=== PATIENT | male | born 1965 | race American Indian/Alaskan Native ===

== ENCOUNTER 2019-11-17 00:18 | Day surgery (SDC) | payer OTHER ==
[~2019-11-17 00:18] MED LIST: ATOR10; LISI5 PO; METF500; SPIHYD
== END 2019-11-17 22:52 | disposition home or self-care (01) ==
LOC: WOUND 00:18
DX: E11.621 Type 2 diabetes mellitus with foot ulcer (principal); E11.42 Type 2 diabetes mellitus with diabetic polyneuropathy; I10 Essential (primary) hypertension; F41.9 Anxiety disorder, unspecified; E11.51 Type 2 diabetes mellitus with diabetic peripheral angiopathy without gangrene; L97.519 Non-pressure chronic ulcer of other part of right foot with unspecified severity; Z79.84 Long term (current) use of oral hypoglycemic drugs; Z79.899 Other long term (current) drug therapy
CPT/HCPCS: G0463

== ENCOUNTER 2019-11-18 17:45 | Inpatient (IN) | payer SELFPAY ==
[~2019-11-18] VITALS: Ht 172.7 cm; Wt 80.2 kg
[2019-11-18 18:36] LABS: BASOPHILS ABSOLUTE AUTO 0.09 K/mm3 (0.00-0.23); BASOPHILS PERCENT AUTO 1 % (0-2); EOSINOPHILS ABSOLUTE AUTO 0.25 K/mm3 (0.00-0.68); EOSINOPHILS PERCENT AUTO 2 % (0-6); Hematocrit 41.6 % (37.0-53.0); Hemoglobin 14.2 g/dL (13.5-17.5); IMMATURE GRAN ABSOLUTE AUTO 0.06 K/mm3 (0.00-0.10); IMMATURE GRAN PERCENT AUTO 1 % (0-1); LYMPHOCYTES ABSOLUTE AUTO 2.54 K/mm3 (0.84-5.20); LYMPHOCYTES PERCENT AUTO 23 % (21-46); MONOCYTES ABSOLUTE AUTO 1.39 K/mm3 (0.16-1.47); MONOCYTES PERCENT AUTO 12 % (4-13); Mean Corpuscular HGB Conc 34.1 g/dL (31.5-36.5); Mean Corpuscular Volume 88 fL (80-100); NEUTROPHILS ABSOLUTE AUTO 6.98 K/mm3 (1.96-9.15); NEUTROPHILS PERCENT AUTO 62 % (41-73); Platelet Count 509 K/mm3 (150-400); RDW Coefficient Variation 11.9 % (11.7-14.2); RDW Standard Deviation 38.4 fL (35.1-46.3); Red Blood Cell Count 4.74 M/mm3 (4.30-5.90); White Blood Cell Count 11.31 K/mm3 (4.00-11.30)
[2019-11-18 19:03] LABS: Albumin, Blood 2.9 g/dL (3.4-5.0); Albumin/Globulin Ratio 0.4 (0.8-1.8); Bilirubin, Total 0.7 mg/dL (0.1-1.0); Bun/Creatinine Ratio 14.2 (12.0-20.0); Calcium, Blood 9.1 mg/dL (8.5-10.1); Creatinine, Blood 1.48 mg/dL (0.60-1.20); Globulin, Blood 6.8 g/dL (2.2-4.0); Potassium, Blood 3.5 mmol/L (3.5-5.5); Total Protein, Blood 9.7 g/dL (6.4-8.2)
[2019-11-18 21:19] LABS: Source, Urine Clean Catch
[2019-11-18 21:26] LABS: Appearance, Urine Clear (Clear); Bilirubin, Urine Neg (Neg); Blood, Urine Neg (Neg); Color, Urine Amber (P-Yellow); Glucose Qualitative, Urine Neg (Neg); Ketones, Urine 1+ (Neg); Leukocyte Esterase, Urine 1+ (Neg); Nitrite, Urine Neg (Neg); Protein, Urine Neg (Neg); Specific Gravity, Urine 1.015 (1.003-1.022); Urobilinogen, Urine 1+ (Normal)
[2019-11-18 21:32] LABS: Bacteria Mod /hpf; Hyaline Casts 0-2 /lpf (0-2); Red Blood Cells, Urine 0-2 /hpf (0-2); Squamous Epithelial Cells Not Seen /hpf (Few); White Blood Cells, Urine 0-2 /hpf (0-5)
--- NOTE | 2019-11-19 04:11 | NUR ---
PT ARRIVED TO UNIT AT 2122 VIA WHEELCHAIR. A/O X4. INTRODUCED TO STAFF AND ROOM. DENIES CHEST PAIN, SOB, NAUSEA. PICTURES TAKEN OF TOE GANGRENE ON BILATERAL TOE. VSS. PT BEEN NPO SINCE MIDNIGHT FOR POSSIBLE PROCEDURE. COOPERATIVE AND PLEASANT. INDEPENDENT IN ROOM. CALL LIGHT WITHIN REACH.
[2019-11-19 04:41] LABS: BASOPHILS ABSOLUTE AUTO 0.08 K/mm3 (0.00-0.23); BASOPHILS PERCENT AUTO 1 % (0-2); EOSINOPHILS ABSOLUTE AUTO 0.22 K/mm3 (0.00-0.68); EOSINOPHILS PERCENT AUTO 3 % (0-6); Hematocrit 38.5 % (37.0-53.0); IMMATURE GRAN ABSOLUTE AUTO 0.04 K/mm3 (0.00-0.10); IMMATURE GRAN PERCENT AUTO 1 % (0-1); LYMPHOCYTES ABSOLUTE AUTO 2.23 K/mm3 (0.84-5.20); LYMPHOCYTES PERCENT AUTO 26 % (21-46); MONOCYTES ABSOLUTE AUTO 1.12 K/mm3 (0.16-1.47); MONOCYTES PERCENT AUTO 13 % (4-13); Mean Corpuscular HGB 30.1 pg (26.0-34.0); Mean Corpuscular HGB Conc 33.8 g/dL (31.5-36.5); Mean Corpuscular Volume 89 fL (80-100); Mean Platelet Volume 9.8 fL (9.1-12.4); NEUTROPHILS ABSOLUTE AUTO 4.86 K/mm3 (1.96-9.15); NEUTROPHILS PERCENT AUTO 57 % (41-73); Platelet Count 447 K/mm3 (150-400); RDW Standard Deviation 39.5 fL (35.1-46.3); Red Blood Cell Count 4.32 M/mm3 (4.30-5.90); White Blood Cell Count 8.55 K/mm3 (4.00-11.30)
[2019-11-19 04:57] LABS: Anion Gap 4 mmol/L (6-16); Blood Urea Nitrogen 19 mg/dL (8-24); Bun/Creatinine Ratio 15.6 (12.0-20.0); CO2, Blood 30 mmol/L (21-32); Calcium, Blood 8.7 mg/dL (8.5-10.1); Chloride, Blood 97 mmol/L (98-108); Creatinine, Blood 1.22 mg/dL (0.60-1.20); Glomerular Filtration Rate >60 (60-); Glucose, Blood 163 mg/dL (70-99); Potassium, Blood 4.3 mmol/L (3.5-5.5); Sodium, Blood 131 mmol/L (136-145)
--- NOTE | 2019-11-19 11:07 | NUR ---
"DAY SURGERY RN | MEDICATION ADMIN THIS RN GAVE VERSED PER ORDER. COMPUTER WOULDN'T SCAN. VERIFIED MEDICATION, DOSAGE, TIME, AND PATIENT WITH EMPERATRIZ MODI."
--- NOTE | 2019-11-19 11:09 | NUR ---
Patient up to Ambulate independently. Gait steady. History, Chart, Medications and Allergies reviewed before start of procedure.Lungs clear T/O to Auscultation. Patient confirms NPO status and agrees with scheduled surgery. REPORT FROM EDG[facility] MODI ROOM 305 NURSE. PT ALERT AND ORIENTED X3. PROVIDED EMOTIONAL SUPPORT.
--- NOTE | 2019-11-19 11:56 | NUR ---
11/19/19 1156 Rose Antonio ALL COUNTS CORRECT.
--- NOTE | 2019-11-19 12:30 | NUR ---
AWAKE AND ALERT, COMPAINTS OF HUNGER. RETURNED TO ROOM 305
--- NOTE | 2019-11-19 14:07 | NUR ---
PATIENT RETURNED TO ROOM 305 FROM DOUBLE TOE AMPUTATION. INSENTIVE SPIROMETER PROVIDED TO THE PATIENT AND EXPLAINED HOW TO USE. PATIENT DID RETURN DEMONSTRATION. POST-OP SHOES ALSO CALLED DOWN TO [facility] AND SENT UP TO PATIENT; THEY ARE IN PATIENTS ROOM.
--- NOTE | 2019-11-19 15:45 | NUR ---
PATIENT IS S/P AMPUTATION OF 3RD TOE TO LEFT FOOT AND 2ND TOE TO RIGHT FOOT. HE IS DOING WELL THUS FAR AND DENIES PAIN AND DISCOMFORT. HE HAS ALREADY BEEN UP ONCE TO THE BATHROOM AND USED HIS POST-OP SHOES INSTRUCTED. VITALS ARE STABLE. THE PATIENT IS PLEASANT AND COOPERATIVE WITH STAFF AND CALLS FOR STAFF ASSIST APPROPRIATELY. WILL CONTINUE TO MONITOR AND PROVIDE CARE NEEDED.
--- NOTE | 2019-11-20 05:43 | NUR ---
ENVIRONMENTAL EDUCATION SPECIALIST SUMMARY PT A/O X4. PT HAS BEEN UP WITH WALKER AND POST OP SHOES WITH NON-TOE BEARING WEIGHT TO BATHROOM. PT STATES PAIN TOLERABLE, DENIES SOB AND DIZZINESS. PT SLEPT WELL TONIGHT. DRESSING ON BILATERAL FEET C/D/I. VSS. NO ACUTE CHANGES.
[2019-11-20] MEDS ORDERED: Florastor250 MG PO (07:58)
[2019-11-20] MEDS ORDERED: METF500 PO (07:58)
[2019-11-20] MEDS ORDERED: METR500 PO (07:59)
[2019-11-20] MEDS ORDERED: Augmentin 875-1 EACH PO (07:59)
--- NOTE | 2019-11-20 11:28 | NUR ---
PATIENT DISCHARGE: PATIENT DISCHARGED TO HOME THIS SHIFT. MEDICATION RECONCILIATION COMPLETED; MED LIST FAXED TO [facility]. DISCHARGE EDUCATION COMPLETED WITH PATIENT. PATIENT [facility]SPORTED TO [facility] STAFF WITH WHEELCHAIR AT 1120. PATIENT DEPARTED [facility] VIA PRIVATE AUTO.
== END 2019-11-20 11:22 | disposition home or self-care (01) | DRG 256 ==
LOC: ER 17:45 → MEDS 21:07 → ENPENDDIS 11-20 08:00 → MEDS 11-20 11:22
PROVIDERS: Physician Assistant; Podiatrist Foot & Ankle Surgery; ADMIT Hospitalist
PROC: 0Y6U0Z2 Detachment at Left 3rd Toe, Mid, Open Approach (ICD-10-PCS; 2019-11-19)
PROC: 0Y6R0Z2 Detachment at Right 2nd Toe, Mid, Open Approach (ICD-10-PCS; principal; 2019-11-19 11:00)
DX: E11.52 Type 2 diabetes mellitus with diabetic peripheral angiopathy with gangrene (principal); M86.9 Osteomyelitis, unspecified; I96 Gangrene, not elsewhere classified; E87.1 Hypo-osmolality and hyponatremia; N17.9 Acute kidney failure, unspecified; E11.69 Type 2 diabetes mellitus with other specified complication; N18.3 Chronic kidney disease, stage 3 (moderate); E11.22 Type 2 diabetes mellitus with diabetic chronic kidney disease; I12.9 Hypertensive chronic kidney disease with stage 1 through stage 4 chronic kidney disease, or unspecified chronic kidney disease
CPT/HCPCS: 36415; 71046; 80048; 80053; 81001; 82947; 85025; 87086; 90686; 93005; 93010; 96365; 96367; 96375; 99285-25; A9270-GY; J0696; J2250; J2543; J2704; J3010; J7030; J7050

== ENCOUNTER 2020-01-07 00:12 | Day surgery (SDC) | payer OTHER ==
[~2020-01-07 00:12] MED LIST changes: +Augmentin 875-1 EACH PO; +Florastor250 MG PO; +METF500 PO; +METR500 PO
== END 2020-01-07 22:44 | disposition home or self-care (01) ==
LOC: WOUND 00:12
DX: E11.621 Type 2 diabetes mellitus with foot ulcer (principal); E11.51 Type 2 diabetes mellitus with diabetic peripheral angiopathy without gangrene; L97.512 Non-pressure chronic ulcer of other part of right foot with fat layer exposed; L97.522 Non-pressure chronic ulcer of other part of left foot with fat layer exposed; E11.59 Type 2 diabetes mellitus with other circulatory complications; E11.42 Type 2 diabetes mellitus with diabetic polyneuropathy; I10 Essential (primary) hypertension; F41.9 Anxiety disorder, unspecified; Z79.899 Other long term (current) drug therapy; Z79.84 Long term (current) use of oral hypoglycemic drugs
CPT/HCPCS: G0463

== ENCOUNTER 2020-01-13 00:11 | Day surgery (SDC) | payer OTHER | END 2020-01-13 22:44 | disposition home or self-care (01) | LOC: WOUND 00:11 | DX: E11.621 Type 2 diabetes mellitus with foot ulcer (principal); L97.512 Non-pressure chronic ulcer of other part of right foot with fat layer exposed; E11.59 Type 2 diabetes mellitus with other circulatory complications; E11.42 Type 2 diabetes mellitus with diabetic polyneuropathy; I10 Essential (primary) hypertension; F41.9 Anxiety disorder, unspecified; Z79.899 Other long term (current) drug therapy; Z79.84 Long term (current) use of oral hypoglycemic drugs ==

== ENCOUNTER 2020-01-20 00:20 | Day surgery (SDC) | payer SELFPAY | END 2020-01-20 22:46 | disposition home or self-care (01) | LOC: WOUND 00:20 | DX: E11.621 Type 2 diabetes mellitus with foot ulcer (principal); L97.512 Non-pressure chronic ulcer of other part of right foot with fat layer exposed; E11.59 Type 2 diabetes mellitus with other circulatory complications; E11.42 Type 2 diabetes mellitus with diabetic polyneuropathy; I10 Essential (primary) hypertension; F41.9 Anxiety disorder, unspecified; Z79.84 Long term (current) use of oral hypoglycemic drugs; Z79.899 Other long term (current) drug therapy | CPT/HCPCS: G0463 ==

== ENCOUNTER 2020-02-10 00:22 | Day surgery (SDC) | payer OTHER | END 2020-02-10 22:58 | disposition home or self-care (01) | LOC: WOUND 00:22 | DX: E11.621 Type 2 diabetes mellitus with foot ulcer (principal); L97.512 Non-pressure chronic ulcer of other part of right foot with fat layer exposed; E11.59 Type 2 diabetes mellitus with other circulatory complications; I10 Essential (primary) hypertension; F41.9 Anxiety disorder, unspecified; E11.42 Type 2 diabetes mellitus with diabetic polyneuropathy | CPT/HCPCS: G0463 ==

== ENCOUNTER 2020-06-06 11:48 | Day surgery (SDC) | payer OTHER ==
[~2020-06-06] VITALS: Ht 172.7 cm; Wt 80.3 kg
[~2020-06-06 11:48] MED LIST changes: +ATOR10 PO; +Aspirin EC81 MG PO; +GLIP2.5ER PO; +GLUCOPHAGE1000 MG PO; +LISI20 PO; +MULTIPLE VITAM1 EACH PO
== END 2020-06-06 14:13 | disposition home or self-care (01) ==
LOC: ORSCSDS 11:48
PROVIDERS: Internal Medicine Gastroenterology
PROC: 0DBC8ZX Excision of Ileocecal Valve, Via Natural or Artificial Opening Endoscopic, Diagnostic (ICD-10-PCS; principal; 2020-06-06 13:15)
PROC: 0DBK8ZX Excision of Ascending Colon, Via Natural or Artificial Opening Endoscopic, Diagnostic (ICD-10-PCS; principal; 2020-06-06 13:15)
DX: Z12.11 Encounter for screening for malignant neoplasm of colon (principal); Z80.0 Family history of malignant neoplasm of digestive organs; D12.2 Benign neoplasm of ascending colon; D12.0 Benign neoplasm of cecum; K57.30 Diverticulosis of large intestine without perforation or abscess without bleeding; I10 Essential (primary) hypertension; E11.9 Type 2 diabetes mellitus without complications; E78.5 Hyperlipidemia, unspecified; Z79.84 Long term (current) use of oral hypoglycemic drugs; Z79.82 Long term (current) use of aspirin; Z79.899 Other long term (current) drug therapy
CPT/HCPCS: 82947; 88305; J2704; J7120

== ENCOUNTER 2020-12-15 17:16 | Emergency (ER) | payer OTHER ==
[~2020-12-15] VITALS: Ht 172.7 cm; Wt 86.2 kg
[2020-12-15 17:57] LABS: BASOPHILS ABSOLUTE AUTO 0.06 K/mm3 (0.00-0.23); BASOPHILS PERCENT AUTO 1 % (0-2); EOSINOPHILS ABSOLUTE AUTO 0.24 K/mm3 (0.00-0.68); EOSINOPHILS PERCENT AUTO 3 % (0-6); Hematocrit 37.4 % (37.0-53.0); Hemoglobin 12.4 g/dL (13.5-17.5); IMMATURE GRAN ABSOLUTE AUTO 0.09 K/mm3 (0.00-0.10); IMMATURE GRAN PERCENT AUTO 1 % (0-1); LYMPHOCYTES ABSOLUTE AUTO 1.93 K/mm3 (0.84-5.20); LYMPHOCYTES PERCENT AUTO 25 % (21-46); MONOCYTES ABSOLUTE AUTO 0.88 K/mm3 (0.16-1.47); MONOCYTES PERCENT AUTO 12 % (4-13); Mean Corpuscular HGB 29.4 pg (26.0-34.0); Mean Corpuscular HGB Conc 33.2 g/dL (31.5-36.5); Mean Corpuscular Volume 89 fL (80-100); Mean Platelet Volume 9.5 fL (9.1-12.4); NEUTROPHILS ABSOLUTE AUTO 4.42 K/mm3 (1.96-9.15); NEUTROPHILS PERCENT AUTO 58 % (41-73); Platelet Count 498 K/mm3 (150-400); RDW Coefficient Variation 12.7 % (11.7-14.2); RDW Standard Deviation 41.8 fL (35.1-46.3); Red Blood Cell Count 4.22 M/mm3 (4.30-5.90); White Blood Cell Count 7.62 K/mm3 (4.00-11.30)
[2020-12-15 18:25] LABS: Alanine Aminotransfer (ALT/SGP 22 U/L (12-78); Albumin, Blood 2.7 g/dL (3.4-5.0); Albumin/Globulin Ratio 0.5 (0.8-1.8); Alk Phos 86 U/L (50-136); Anion Gap 5 mmol/L (6-16); Aspartate Aminotrans (AST/SGOT 18 U/L (12-37); Bilirubin, Total 0.4 mg/dL (0.1-1.0); Blood Urea Nitrogen 8 mg/dL (8-24); CO2, Blood 27 mmol/L (21-32); Calcium, Blood 9.1 mg/dL (8.5-10.1); Chloride, Blood 102 mmol/L (98-108); Creatinine, Blood 0.73 mg/dL (0.60-1.20); Globulin, Blood 5.5 g/dL (2.2-4.0); Glomerular Filtration Rate >60 (60-); Glucose, Blood 216 mg/dL (70-99); Potassium, Blood 4.2 mmol/L (3.5-5.5); Sodium, Blood 134 mmol/L (136-145); Total Protein, Blood 8.2 g/dL (6.4-8.2)
[2020-12-16] MEDS ORDERED: METF500 PO (08:09)
== END 2020-12-15 23:09 | disposition home or self-care (01) ==
LOC: ER 17:16
PROVIDERS: Physician Assistant
DX: M86.9 Osteomyelitis, unspecified (principal); Z79.82 Long term (current) use of aspirin; Z79.899 Other long term (current) drug therapy
CPT/HCPCS: 36415; 80053; 85025; 93005; 93010; 99284-25

== ENCOUNTER 2020-12-16 06:24 | Inpatient (IN) | payer OTHER ==
[~2020-12-16] VITALS: Ht 172.7 cm; Wt 87.4 kg
[2020-12-16 07:49] LABS: Influenza A, PCR NEGATIVE (NEGATIVE); Influenza B, PCR NEGATIVE (NEGATIVE); Resp Syncytial Virus, PCR NEGATIVE (NEGATIVE); SARS-Cov-2 (COVID-19) PCR, MMC NEGATIVE (NEGATIVE)
[2020-12-16] MEDS ORDERED: METF500 PO (08:09)
[2020-12-16 12:08] LABS: BASOPHILS ABSOLUTE AUTO 0.06 K/mm3 (0.00-0.23); BASOPHILS PERCENT AUTO 1 % (0-2); EOSINOPHILS ABSOLUTE AUTO 0.22 K/mm3 (0.00-0.68); EOSINOPHILS PERCENT AUTO 3 % (0-6); Hematocrit 35.5 % (37.0-53.0); Hemoglobin 11.7 g/dL (13.5-17.5); IMMATURE GRAN ABSOLUTE AUTO 0.04 K/mm3 (0.00-0.10); IMMATURE GRAN PERCENT AUTO 1 % (0-1); LYMPHOCYTES ABSOLUTE AUTO 1.85 K/mm3 (0.84-5.20); LYMPHOCYTES PERCENT AUTO 27 % (21-46); MONOCYTES ABSOLUTE AUTO 0.67 K/mm3 (0.16-1.47); MONOCYTES PERCENT AUTO 10 % (4-13); Mean Corpuscular HGB 29.8 pg (26.0-34.0); Mean Corpuscular Volume 90 fL (80-100); Mean Platelet Volume 9.6 fL (9.1-12.4); NEUTROPHILS ABSOLUTE AUTO 4.03 K/mm3 (1.96-9.15); NEUTROPHILS PERCENT AUTO 59 % (41-73); Platelet Count 499 K/mm3 (150-400); RDW Coefficient Variation 12.7 % (11.7-14.2); RDW Standard Deviation 42.5 fL (35.1-46.3); Red Blood Cell Count 3.93 M/mm3 (4.30-5.90); White Blood Cell Count 6.87 K/mm3 (4.00-11.30)
[2020-12-16 12:13] LABS: Anion Gap 4 mmol/L (6-16); Blood Urea Nitrogen 7 mg/dL (8-24); Bun/Creatinine Ratio 9.6 (12.0-20.0); CO2, Blood 30 mmol/L (21-32); Calcium, Blood 8.8 mg/dL (8.5-10.1); Chloride, Blood 102 mmol/L (98-108); Creatinine, Blood 0.73 mg/dL (0.60-1.20); Glomerular Filtration Rate >60 (60-); Glucose, Blood 167 mg/dL (70-99); Potassium, Blood 4.3 mmol/L (3.5-5.5); Sodium, Blood 136 mmol/L (136-145)
--- NOTE | 2020-12-16 13:50 | NUR ---
CARE COORDINATION REFERRAL - ADMIT: 12/16/20 DISCHARGE: 12/16/20 DX: LEFT METATORSAL OSTEOMYLITIS CC: [facility] ALEX CALL: PT (APPT. WITH DR. CASTELLANOS, 12/19/20 @ 11) RESIDENCE: HOMELESS CAREGIVER: SELF DX: HTN, DM, HYPERLIPIDEMIA, SEE LIST DME: [facility] SUPPLIES CCM: NONE HOME HEALTH: NONE SUMMARY: ADMIT: 12/16/[address] CASTELLANOS, PT WAS GOING TO HAVE SURGERY TO AMPUTATE HIS BIG TOE ON HIS LEFT FOOT BUT ARE CONSULTATION AND DISCUSSION WITH PT, THEY WOULD LIKE TO TRY IV ANTIBIOTICS FOR INFECTION BEFORE REMOVING HIS TOE. PT IS AGREEABLE WITH THE PLAN. THERE IS CONCERN ABOUT HIM BEING HOMELESS. REACHED OUT TO FCO WITH [facility]. SHE IS OUT OF TOWN AND GAVE ME ANABELLE'S NUMBER. CALLED [facility] FOR ANY HOUSING RESOURCES. DR. CASTELLANOS CONSULTED DR. LEDESMA AND THE PLAN IS FOR PT TO FOLLOW UP WITH DR. CASTELLANOS ON SATURDAY. PER DIRECTOR OF CARE MANAGEMENT, PT WILL NEED TO GET IV ANTIBIOTICS THROUGH [facility].
--- NOTE | 2020-12-16 17:56 | NUR ---
DISCHARGE SUMMARY PT DIRECT ADMIT FOR A R GREAT TOE AMPUTATION PER DR. BURCH TODAY. DR. CASTELLANOS WITH [facility] ASSESSED THE PATIENT AND DETERMINED THAT PT MAY BENEFIT FROM OUT PATIENT ANTIBIOTIC TREATMENT RATHER THAN THERAPY. DECISION WAS DISCUSSED WITH PATIENT AND AND THE PATIENT DID NOT RECEIVE SURGERY TODAY. PT TO FOLLOW UP WITH DR. CASTELLANOS ON SATURDAY AT 11:00. IV DC'D WNL. DISCHARGED TO THE [facility].
== END 2020-12-16 17:55 | disposition home or self-care (01) | DRG 638 ==
LOC: ORSCMMR 06:24 → SURS 06:32 → ORSCMMR 06:32 → SURS 17:55
PROVIDERS: Anesthesiology; Internal Medicine; ADMIT Internal Medicine
DX: E11.69 Type 2 diabetes mellitus with other specified complication (principal); M86.172 Other acute osteomyelitis, left ankle and foot; L97.529 Non-pressure chronic ulcer of other part of left foot with unspecified severity; E11.621 Type 2 diabetes mellitus with foot ulcer; E11.65 Type 2 diabetes mellitus with hyperglycemia; E78.5 Hyperlipidemia, unspecified; E11.51 Type 2 diabetes mellitus with diabetic peripheral angiopathy without gangrene; D64.9 Anemia, unspecified; I12.9 Hypertensive chronic kidney disease with stage 1 through stage 4 chronic kidney disease, or unspecified chronic kidney disease; N18.9 Chronic kidney disease, unspecified; Z20.822 Contact with and (suspected) exposure to COVID-19; E11.22 Type 2 diabetes mellitus with diabetic chronic kidney disease; J45.909 Unspecified asthma, uncomplicated; Z96.651 Presence of right artificial knee joint; Z98.890 Other specified postprocedural states; Z89.422 Acquired absence of other left toe(s); Z89.421 Acquired absence of other right toe(s); Z79.84 Long term (current) use of oral hypoglycemic drugs; Z71.3 Dietary counseling and surveillance; Z59.0 Homelessness; I25.2 Old myocardial infarction
CPT/HCPCS: 0241U; 36415; 80048; 82947; 85025; 85651; 86141; 86850; 86900; 86901; 87040; 87070; 87075; 87077; 87147; 87186; 87205; J7050

== ENCOUNTER 2020-12-20 01:02 | Day surgery (SDC) | payer OTHER ==
--- NOTE | 2020-12-20 08:15 | NUR ---
PB ELEVATED. CALLED PRIMARY CARE PROVIDERS OFFICE DR. CASTELLANOS AND SPOKE WITH LINK TOLLIVER AND REPORTED ELEVATED BP. SHE STATED SHE WOULD TALK WITH MD. NO NEW ORDERS GIVEN.
== END 2020-12-20 08:11 | disposition home or self-care (01) ==
LOC: ATC 01:02
DX: E11.69 Type 2 diabetes mellitus with other specified complication (principal); M86.9 Osteomyelitis, unspecified; E11.42 Type 2 diabetes mellitus with diabetic polyneuropathy; E11.51 Type 2 diabetes mellitus with diabetic peripheral angiopathy without gangrene; E78.5 Hyperlipidemia, unspecified; I10 Essential (primary) hypertension; M19.042 Primary osteoarthritis, left hand; M19.041 Primary osteoarthritis, right hand; Z96.651 Presence of right artificial knee joint; Z79.82 Long term (current) use of aspirin; Z79.84 Long term (current) use of oral hypoglycemic drugs
CPT/HCPCS: J0696

== ENCOUNTER 2020-12-21 00:29 | Day surgery (SDC) | payer OTHER | END 2020-12-21 08:45 | disposition home or self-care (01) | LOC: ATC 00:29 | DX: E11.69 Type 2 diabetes mellitus with other specified complication (principal); M86.9 Osteomyelitis, unspecified; E11.42 Type 2 diabetes mellitus with diabetic polyneuropathy; I10 Essential (primary) hypertension; E78.5 Hyperlipidemia, unspecified; Z96.651 Presence of right artificial knee joint; Z89.412 Acquired absence of left great toe; Z79.82 Long term (current) use of aspirin; Z79.84 Long term (current) use of oral hypoglycemic drugs | CPT/HCPCS: 96365; C1751; J0696 ==

== ENCOUNTER 2020-12-22 00:07 | Day surgery (SDC) | payer OTHER ==
[2020-12-23] MEDS ORDERED: CEFTRIAXONE2 G1 INJ (07:40)
== END 2020-12-22 08:25 | disposition home or self-care (01) ==
LOC: ATC 00:07
DX: E11.69 Type 2 diabetes mellitus with other specified complication (principal); M86.9 Osteomyelitis, unspecified; E11.42 Type 2 diabetes mellitus with diabetic polyneuropathy; E11.51 Type 2 diabetes mellitus with diabetic peripheral angiopathy without gangrene; I10 Essential (primary) hypertension; E78.5 Hyperlipidemia, unspecified; M19.042 Primary osteoarthritis, left hand; M19.041 Primary osteoarthritis, right hand; Z79.84 Long term (current) use of oral hypoglycemic drugs; Z96.651 Presence of right artificial knee joint; Z89.412 Acquired absence of left great toe; Z79.82 Long term (current) use of aspirin
CPT/HCPCS: 96365; J0696

== ENCOUNTER 2020-12-23 00:04 | Day surgery (SDC) | payer OTHER ==
[2020-12-23] MEDS ORDERED: CEFTRIAXONE2 G1 INJ (07:40)
== END 2020-12-23 08:00 | disposition home or self-care (01) ==
LOC: ATC 00:04
DX: E11.69 Type 2 diabetes mellitus with other specified complication (principal); M86.9 Osteomyelitis, unspecified; E11.51 Type 2 diabetes mellitus with diabetic peripheral angiopathy without gangrene; E11.42 Type 2 diabetes mellitus with diabetic polyneuropathy; I10 Essential (primary) hypertension; E78.5 Hyperlipidemia, unspecified; Z96.651 Presence of right artificial knee joint; Z89.429 Acquired absence of other toe(s), unspecified side; Z79.82 Long term (current) use of aspirin; Z79.84 Long term (current) use of oral hypoglycemic drugs
CPT/HCPCS: 96365; J0696

== ENCOUNTER 2020-12-24 07:50 | Day surgery (SDC) | payer OTHER ==
[~2020-12-24 07:50] MED LIST changes: +CEFTRIAXONE2 G1 INJ
== END 2020-12-24 08:23 | disposition home or self-care (01) ==
LOC: ATC 07:50
DX: E11.69 Type 2 diabetes mellitus with other specified complication (principal); M86.9 Osteomyelitis, unspecified; E11.42 Type 2 diabetes mellitus with diabetic polyneuropathy; E78.5 Hyperlipidemia, unspecified; I10 Essential (primary) hypertension; I73.9 Peripheral vascular disease, unspecified; Z89.429 Acquired absence of other toe(s), unspecified side; Z79.82 Long term (current) use of aspirin
CPT/HCPCS: J0696

== ENCOUNTER 2020-12-25 07:46 | Day surgery (SDC) | payer OTHER | END 2020-12-25 08:30 | disposition home or self-care (01) | LOC: ATC 07:46 | DX: E11.69 Type 2 diabetes mellitus with other specified complication (principal); M86.9 Osteomyelitis, unspecified; I10 Essential (primary) hypertension; E11.51 Type 2 diabetes mellitus with diabetic peripheral angiopathy without gangrene; E11.42 Type 2 diabetes mellitus with diabetic polyneuropathy; E78.00 Pure hypercholesterolemia, unspecified; E66.9 Obesity, unspecified; Z79.82 Long term (current) use of aspirin; Z79.84 Long term (current) use of oral hypoglycemic drugs; Z89.429 Acquired absence of other toe(s), unspecified side; Z96.651 Presence of right artificial knee joint | CPT/HCPCS: J0696 ==

== ENCOUNTER 2020-12-26 00:31 | Day surgery (SDC) | payer OTHER | END 2020-12-26 22:55 | disposition home or self-care (01) | LOC: WOUND | DX: E11.621 Type 2 diabetes mellitus with foot ulcer (principal); E11.69 Type 2 diabetes mellitus with other specified complication; E11.42 Type 2 diabetes mellitus with diabetic polyneuropathy; E11.59 Type 2 diabetes mellitus with other circulatory complications; L97.522 Non-pressure chronic ulcer of other part of left foot with fat layer exposed; M86.9 Osteomyelitis, unspecified; I10 Essential (primary) hypertension | CPT/HCPCS: A9270; G0463 ==

== ENCOUNTER 2020-12-27 00:25 | Day surgery (SDC) | payer OTHER ==
--- NOTE | 2020-12-27 08:40 | NUR ---
PT STATES HE HAS A DR. DAWNT IN THE NEXT COUPLE OF DAYS AND WILL ADDRESS HIS BP.
== END 2020-12-27 08:01 | disposition home or self-care (01) ==
LOC: ATC 00:25
DX: E11.69 Type 2 diabetes mellitus with other specified complication (principal); M86.9 Osteomyelitis, unspecified; E11.51 Type 2 diabetes mellitus with diabetic peripheral angiopathy without gangrene; E11.42 Type 2 diabetes mellitus with diabetic polyneuropathy; E78.5 Hyperlipidemia, unspecified; I10 Essential (primary) hypertension; E66.9 Obesity, unspecified; M19.042 Primary osteoarthritis, left hand; M19.041 Primary osteoarthritis, right hand; Z79.82 Long term (current) use of aspirin
CPT/HCPCS: 96365; J0696

== ENCOUNTER 2020-12-28 00:16 | Day surgery (SDC) | payer OTHER | END 2020-12-28 08:25 | disposition home or self-care (01) | LOC: ATC 00:16 | DX: E11.69 Type 2 diabetes mellitus with other specified complication (principal); M86.9 Osteomyelitis, unspecified; E11.42 Type 2 diabetes mellitus with diabetic polyneuropathy; E78.5 Hyperlipidemia, unspecified; I10 Essential (primary) hypertension; M19.042 Primary osteoarthritis, left hand; M19.041 Primary osteoarthritis, right hand; Z89.429 Acquired absence of other toe(s), unspecified side; Z96.651 Presence of right artificial knee joint; Z79.82 Long term (current) use of aspirin; Z79.84 Long term (current) use of oral hypoglycemic drugs | CPT/HCPCS: 96365; J0696 ==

== ENCOUNTER 2020-12-29 00:38 | Day surgery (SDC) | payer OTHER | END 2020-12-29 08:15 | disposition home or self-care (01) | LOC: ATC 00:38 | DX: E11.69 Type 2 diabetes mellitus with other specified complication (principal); M86.9 Osteomyelitis, unspecified; I10 Essential (primary) hypertension; E11.51 Type 2 diabetes mellitus with diabetic peripheral angiopathy without gangrene; E11.42 Type 2 diabetes mellitus with diabetic polyneuropathy; E78.00 Pure hypercholesterolemia, unspecified; E66.9 Obesity, unspecified; Z68.31 Body mass index [BMI] 31.0-31.9, adult; Z79.82 Long term (current) use of aspirin; Z79.84 Long term (current) use of oral hypoglycemic drugs; Z89.429 Acquired absence of other toe(s), unspecified side | CPT/HCPCS: 96365; J0696 ==

== ENCOUNTER 2020-12-30 00:15 | Day surgery (SDC) | payer OTHER | END 2020-12-30 08:10 | disposition home or self-care (01) | LOC: ATC 00:15 | DX: E11.69 Type 2 diabetes mellitus with other specified complication (principal); M86.9 Osteomyelitis, unspecified; I10 Essential (primary) hypertension; F10.20 Alcohol dependence, uncomplicated; E11.42 Type 2 diabetes mellitus with diabetic polyneuropathy; E11.51 Type 2 diabetes mellitus with diabetic peripheral angiopathy without gangrene; Z79.82 Long term (current) use of aspirin; E78.00 Pure hypercholesterolemia, unspecified; E66.9 Obesity, unspecified; Z89.429 Acquired absence of other toe(s), unspecified side | CPT/HCPCS: J0696 ==

== ENCOUNTER 2020-12-31 07:43 | Day surgery (SDC) | payer OTHER ==
[2021-01-01] MEDS ORDERED: BASAGLAR K100 UNIT/1 (09:33)
== END 2020-12-31 08:25 | disposition home or self-care (01) ==
LOC: ATC 07:43
DX: E11.69 Type 2 diabetes mellitus with other specified complication (principal); M86.9 Osteomyelitis, unspecified; E11.51 Type 2 diabetes mellitus with diabetic peripheral angiopathy without gangrene; E11.42 Type 2 diabetes mellitus with diabetic polyneuropathy; I10 Essential (primary) hypertension; E78.00 Pure hypercholesterolemia, unspecified; E66.9 Obesity, unspecified; Z68.31 Body mass index [BMI] 31.0-31.9, adult; Z79.82 Long term (current) use of aspirin; Z79.84 Long term (current) use of oral hypoglycemic drugs; Z89.429 Acquired absence of other toe(s), unspecified side
CPT/HCPCS: 96365; J0696

== ENCOUNTER 2021-01-01 09:23 | Day surgery (SDC) | payer OTHER ==
[2021-01-01] MEDS ORDERED: BASAGLAR K100 UNIT/1 (09:33)
[2021-01-02] MEDS ORDERED: Voltaren100 GM TOP (07:40)
[2021-01-02] MEDS ORDERED: BASAGLAR K100 UNIT/8 SC (07:41)
[2021-01-02] MEDS ORDERED: GLIP2.5ER PO (07:41)
[2021-01-02] MEDS ORDERED: HYDROCHLOROTH12.5 MG PO (07:42)
[2021-01-02] MEDS ORDERED: ZESTRIL40 M1 PO (07:43)
== END 2021-01-01 09:50 | disposition home or self-care (01) ==
LOC: ATC 09:23
DX: E11.69 Type 2 diabetes mellitus with other specified complication (principal); M86.9 Osteomyelitis, unspecified; E11.51 Type 2 diabetes mellitus with diabetic peripheral angiopathy without gangrene; I10 Essential (primary) hypertension; E78.5 Hyperlipidemia, unspecified; M19.90 Unspecified osteoarthritis, unspecified site; E66.9 Obesity, unspecified
CPT/HCPCS: J0696

== ENCOUNTER 2021-01-02 00:02 | Day surgery (SDC) | payer OTHER ==
[~2021-01-02 00:02] MED LIST changes: +BASAGLAR K100 UNIT/1
[2021-01-02] MEDS ORDERED: Voltaren100 GM TOP (07:40)
[2021-01-02] MEDS ORDERED: BASAGLAR K100 UNIT/8 SC (07:41)
[2021-01-02] MEDS ORDERED: GLIP2.5ER PO (07:41)
[2021-01-02] MEDS ORDERED: HYDROCHLOROTH12.5 MG PO (07:42)
[2021-01-02] MEDS ORDERED: ZESTRIL40 M1 PO (07:43)
== END 2021-01-02 08:01 | disposition home or self-care (01) ==
LOC: ATC 00:02
DX: E11.69 Type 2 diabetes mellitus with other specified complication (principal); M86.9 Osteomyelitis, unspecified; E11.51 Type 2 diabetes mellitus with diabetic peripheral angiopathy without gangrene; E11.42 Type 2 diabetes mellitus with diabetic polyneuropathy; I10 Essential (primary) hypertension; E78.5 Hyperlipidemia, unspecified; M19.90 Unspecified osteoarthritis, unspecified site; E66.9 Obesity, unspecified; E78.00 Pure hypercholesterolemia, unspecified; Z68.31 Body mass index [BMI] 31.0-31.9, adult; Z79.82 Long term (current) use of aspirin; Z79.84 Long term (current) use of oral hypoglycemic drugs; Z89.429 Acquired absence of other toe(s), unspecified side
CPT/HCPCS: J0696

== ENCOUNTER 2021-01-02 00:15 | Day surgery (SDC) | payer OTHER ==
[2021-01-02] MEDS ORDERED: Voltaren100 GM TOP (07:40)
[2021-01-02] MEDS ORDERED: GLIP2.5ER PO (07:41)
[2021-01-02] MEDS ORDERED: BASAGLAR K100 UNIT/8 SC (07:41)
[2021-01-02] MEDS ORDERED: HYDROCHLOROTH12.5 MG PO (07:42)
[2021-01-02] MEDS ORDERED: ZESTRIL40 M1 PO (07:43)
== END 2021-01-02 23:11 | disposition home or self-care (01) ==
LOC: WOUND 00:15
DX: E11.621 Type 2 diabetes mellitus with foot ulcer (principal); L97.422 Non-pressure chronic ulcer of left heel and midfoot with fat layer exposed; E11.59 Type 2 diabetes mellitus with other circulatory complications; I10 Essential (primary) hypertension; E11.42 Type 2 diabetes mellitus with diabetic polyneuropathy
CPT/HCPCS: A9270

== ENCOUNTER 2021-01-03 00:01 | Day surgery (SDC) | payer OTHER ==
[~2021-01-03 00:01] MED LIST changes: +BASAGLAR K100 UNIT/8 SC; +HYDROCHLOROTH12.5 MG PO; +Voltaren100 GM TOP; +ZESTRIL40 M1 PO
== END 2021-01-03 08:03 | disposition home or self-care (01) ==
LOC: ATC 00:01
DX: E11.69 Type 2 diabetes mellitus with other specified complication (principal); M86.9 Osteomyelitis, unspecified; I10 Essential (primary) hypertension; E78.5 Hyperlipidemia, unspecified; E11.51 Type 2 diabetes mellitus with diabetic peripheral angiopathy without gangrene; E11.42 Type 2 diabetes mellitus with diabetic polyneuropathy; E78.00 Pure hypercholesterolemia, unspecified; E66.9 Obesity, unspecified; Z79.82 Long term (current) use of aspirin; Z68.31 Body mass index [BMI] 31.0-31.9, adult; Z79.84 Long term (current) use of oral hypoglycemic drugs; Z89.429 Acquired absence of other toe(s), unspecified side
CPT/HCPCS: J0696

== ENCOUNTER 2021-01-04 00:53 | Day surgery (SDC) | payer OTHER | END 2021-01-04 08:04 | disposition home or self-care (01) | LOC: ATC 00:53 | DX: E11.69 Type 2 diabetes mellitus with other specified complication (principal); M86.9 Osteomyelitis, unspecified; E11.42 Type 2 diabetes mellitus with diabetic polyneuropathy; E11.51 Type 2 diabetes mellitus with diabetic peripheral angiopathy without gangrene; E78.5 Hyperlipidemia, unspecified; I10 Essential (primary) hypertension; M19.042 Primary osteoarthritis, left hand; M19.041 Primary osteoarthritis, right hand; Z96.651 Presence of right artificial knee joint; Z89.429 Acquired absence of other toe(s), unspecified side; Z79.84 Long term (current) use of oral hypoglycemic drugs; Z79.82 Long term (current) use of aspirin | CPT/HCPCS: 96365; J0696 ==

== ENCOUNTER 2021-01-11 00:47 | Day surgery (SDC) | payer OTHER | END 2021-01-11 08:13 | disposition home or self-care (01) | LOC: ATC 00:47 | DX: M86.9 Osteomyelitis, unspecified (principal); E78.5 Hyperlipidemia, unspecified; F10.20 Alcohol dependence, uncomplicated; I10 Essential (primary) hypertension; E11.42 Type 2 diabetes mellitus with diabetic polyneuropathy; M19.042 Primary osteoarthritis, left hand; M19.041 Primary osteoarthritis, right hand; Z79.82 Long term (current) use of aspirin; Z79.899 Other long term (current) drug therapy; Z79.84 Long term (current) use of oral hypoglycemic drugs | CPT/HCPCS: 96365; J0696 ==

== ENCOUNTER 2021-01-12 02:02 | Day surgery (SDC) | payer OTHER | END 2021-01-12 08:04 | disposition home or self-care (01) | LOC: ATC 02:02 | DX: E11.69 Type 2 diabetes mellitus with other specified complication (principal); M86.8X7 Other osteomyelitis, ankle and foot; E11.621 Type 2 diabetes mellitus with foot ulcer | CPT/HCPCS: 96365; J0696 ==

== ENCOUNTER 2021-01-13 02:00 | Day surgery (SDC) | payer OTHER | END 2021-01-13 08:02 | disposition home or self-care (01) | LOC: ATC 02:00 | DX: E11.69 Type 2 diabetes mellitus with other specified complication (principal); M86.9 Osteomyelitis, unspecified; I10 Essential (primary) hypertension; E78.5 Hyperlipidemia, unspecified; E11.51 Type 2 diabetes mellitus with diabetic peripheral angiopathy without gangrene | CPT/HCPCS: 96365; J0696 ==

== ENCOUNTER 2021-01-14 07:23 | Day surgery (SDC) | payer OTHER | END 2021-01-14 07:52 | disposition home or self-care (01) | LOC: ATC 07:23 | DX: E11.69 Type 2 diabetes mellitus with other specified complication (principal); M86.9 Osteomyelitis, unspecified; E11.42 Type 2 diabetes mellitus with diabetic polyneuropathy; E11.51 Type 2 diabetes mellitus with diabetic peripheral angiopathy without gangrene; E78.5 Hyperlipidemia, unspecified; I10 Essential (primary) hypertension; Z79.82 Long term (current) use of aspirin; Z79.84 Long term (current) use of oral hypoglycemic drugs; M19.042 Primary osteoarthritis, left hand; M19.041 Primary osteoarthritis, right hand; Z89.429 Acquired absence of other toe(s), unspecified side; Z96.651 Presence of right artificial knee joint | CPT/HCPCS: 96365; J0696 ==

== ENCOUNTER 2021-01-15 07:25 | Day surgery (SDC) | payer OTHER | END 2021-01-15 07:58 | disposition home or self-care (01) | LOC: ATC 07:25 | DX: E11.69 Type 2 diabetes mellitus with other specified complication (principal); M86.9 Osteomyelitis, unspecified; I10 Essential (primary) hypertension; Z86.79 Personal history of other diseases of the circulatory system; Z79.84 Long term (current) use of oral hypoglycemic drugs | CPT/HCPCS: 96365; J0696 ==

== ENCOUNTER 2021-01-16 00:03 | Day surgery (SDC) | payer OTHER | END 2021-01-16 23:01 | disposition home or self-care (01) | LOC: WOUND 00:03 | DX: E11.621 Type 2 diabetes mellitus with foot ulcer (principal); L97.522 Non-pressure chronic ulcer of other part of left foot with fat layer exposed; E11.59 Type 2 diabetes mellitus with other circulatory complications; M86.8X7 Other osteomyelitis, ankle and foot; Z59.0 Homelessness; I10 Essential (primary) hypertension; E11.42 Type 2 diabetes mellitus with diabetic polyneuropathy | CPT/HCPCS: A9270 ==

== ENCOUNTER 2021-01-16 00:17 | Day surgery (SDC) | payer OTHER | END 2021-01-16 08:09 | disposition home or self-care (01) | LOC: ATC 00:17 | DX: E11.69 Type 2 diabetes mellitus with other specified complication (principal); M86.9 Osteomyelitis, unspecified; E11.42 Type 2 diabetes mellitus with diabetic polyneuropathy; Z79.84 Long term (current) use of oral hypoglycemic drugs; E78.5 Hyperlipidemia, unspecified; E11.51 Type 2 diabetes mellitus with diabetic peripheral angiopathy without gangrene; I10 Essential (primary) hypertension; E66.9 Obesity, unspecified; Z68.31 Body mass index [BMI] 31.0-31.9, adult; Z96.651 Presence of right artificial knee joint; F10.21 Alcohol dependence, in remission; Z89.422 Acquired absence of other left toe(s); Z79.82 Long term (current) use of aspirin | CPT/HCPCS: 96365; J0696 ==

== ENCOUNTER 2021-01-17 07:35 | Day surgery (SDC) | payer OTHER ==
[2021-01-18] MEDS ORDERED: CLIN150 PO (08:12)
== END 2021-01-17 08:07 | disposition home or self-care (01) ==
LOC: ATC 07:35
DX: M86.9 Osteomyelitis, unspecified (principal); E11.9 Type 2 diabetes mellitus without complications; E78.5 Hyperlipidemia, unspecified; F10.20 Alcohol dependence, uncomplicated; I10 Essential (primary) hypertension
CPT/HCPCS: 96365; J0696

== ENCOUNTER 2021-01-18 00:20 | Day surgery (SDC) | payer OTHER ==
[2021-01-18] MEDS ORDERED: CLIN150 PO (08:12)
== END 2021-01-18 08:05 | disposition home or self-care (01) ==
LOC: ATC 00:20
DX: E11.69 Type 2 diabetes mellitus with other specified complication (principal); M86.9 Osteomyelitis, unspecified; I10 Essential (primary) hypertension; E66.9 Obesity, unspecified; Z89.429 Acquired absence of other toe(s), unspecified side; Z96.651 Presence of right artificial knee joint; Z79.84 Long term (current) use of oral hypoglycemic drugs
CPT/HCPCS: 36415; 80048; 85025; 85651; 96365; J0696

== ENCOUNTER 2021-01-19 00:35 | Day surgery (SDC) | payer OTHER ==
[~2021-01-19 00:35] MED LIST changes: +CLIN150 PO
== END 2021-01-19 08:26 | disposition home or self-care (01) ==
LOC: ATC 00:35
DX: E11.69 Type 2 diabetes mellitus with other specified complication (principal); M86.9 Osteomyelitis, unspecified; Z79.82 Long term (current) use of aspirin; Z79.84 Long term (current) use of oral hypoglycemic drugs; E78.5 Hyperlipidemia, unspecified; I10 Essential (primary) hypertension; E11.42 Type 2 diabetes mellitus with diabetic polyneuropathy; M19.042 Primary osteoarthritis, left hand; M19.041 Primary osteoarthritis, right hand; Z89.429 Acquired absence of other toe(s), unspecified side; Z96.651 Presence of right artificial knee joint
CPT/HCPCS: 96365; C1751; J0696

== ENCOUNTER 2021-01-20 00:03 | Day surgery (SDC) | payer OTHER | END 2021-01-20 08:04 | disposition home or self-care (01) | LOC: ATC 00:03 | DX: M86.9 Osteomyelitis, unspecified (principal); E78.5 Hyperlipidemia, unspecified; F10.20 Alcohol dependence, uncomplicated; E11.42 Type 2 diabetes mellitus with diabetic polyneuropathy; M19.042 Primary osteoarthritis, left hand; M19.041 Primary osteoarthritis, right hand; Z79.82 Long term (current) use of aspirin; Z79.84 Long term (current) use of oral hypoglycemic drugs; I10 Essential (primary) hypertension | CPT/HCPCS: 96365; J0696 ==

== ENCOUNTER 2021-01-21 07:28 | Day surgery (SDC) | payer OTHER | END 2021-01-21 08:03 | disposition home or self-care (01) | LOC: ATC 07:28 | DX: M86.9 Osteomyelitis, unspecified (principal); I10 Essential (primary) hypertension; E78.5 Hyperlipidemia, unspecified; F10.20 Alcohol dependence, uncomplicated; E11.42 Type 2 diabetes mellitus with diabetic polyneuropathy; Z79.82 Long term (current) use of aspirin; Z79.899 Other long term (current) drug therapy; Z79.84 Long term (current) use of oral hypoglycemic drugs | CPT/HCPCS: 96365; J0696 ==

== ENCOUNTER 2021-01-22 07:30 | Day surgery (SDC) | payer OTHER | END 2021-01-22 08:05 | disposition home or self-care (01) | LOC: ATC 07:30 | DX: M86.9 Osteomyelitis, unspecified (principal); I10 Essential (primary) hypertension; E78.5 Hyperlipidemia, unspecified; F10.20 Alcohol dependence, uncomplicated; E11.42 Type 2 diabetes mellitus with diabetic polyneuropathy; Z79.82 Long term (current) use of aspirin; Z79.84 Long term (current) use of oral hypoglycemic drugs; Z79.899 Other long term (current) drug therapy | CPT/HCPCS: 96365; J0696 ==

== ENCOUNTER 2021-01-23 00:09 | Day surgery (SDC) | payer OTHER | END 2021-01-23 22:54 | disposition home or self-care (01) | LOC: WOUND 00:09 | DX: E11.621 Type 2 diabetes mellitus with foot ulcer (principal); L97.522 Non-pressure chronic ulcer of other part of left foot with fat layer exposed; E11.59 Type 2 diabetes mellitus with other circulatory complications; M86.8X7 Other osteomyelitis, ankle and foot; Z59.0 Homelessness; E11.42 Type 2 diabetes mellitus with diabetic polyneuropathy; I10 Essential (primary) hypertension | CPT/HCPCS: 87070; 87077; 87186; 87205 ==

== ENCOUNTER 2021-01-23 00:20 | Day surgery (SDC) | payer OTHER | END 2021-01-23 08:00 | disposition home or self-care (01) | LOC: ATC 00:20 | DX: M86.9 Osteomyelitis, unspecified (principal); Z79.82 Long term (current) use of aspirin; E11.42 Type 2 diabetes mellitus with diabetic polyneuropathy; I10 Essential (primary) hypertension; E78.5 Hyperlipidemia, unspecified; Z79.899 Other long term (current) drug therapy; Z79.84 Long term (current) use of oral hypoglycemic drugs | CPT/HCPCS: 96365; A9270; J0696 ==

== ENCOUNTER 2021-01-24 03:38 | Day surgery (SDC) | payer OTHER | END 2021-01-24 08:00 | disposition home or self-care (01) | LOC: ATC 03:38 | DX: E11.69 Type 2 diabetes mellitus with other specified complication (principal); M86.8X7 Other osteomyelitis, ankle and foot; E11.42 Type 2 diabetes mellitus with diabetic polyneuropathy; I10 Essential (primary) hypertension; E78.5 Hyperlipidemia, unspecified; Z79.82 Long term (current) use of aspirin; Z79.84 Long term (current) use of oral hypoglycemic drugs; Z79.899 Other long term (current) drug therapy | CPT/HCPCS: 96365; J0696 ==

== ENCOUNTER 2021-01-25 16:25 | Day surgery (SDC) | payer OTHER | END 2021-01-25 22:51 | disposition home or self-care (01) | LOC: HBO 16:25 | DX: M86.8X7 Other osteomyelitis, ankle and foot (principal); E11.621 Type 2 diabetes mellitus with foot ulcer; L97.509 Non-pressure chronic ulcer of other part of unspecified foot with unspecified severity; E11.59 Type 2 diabetes mellitus with other circulatory complications; Z59.0 Homelessness | CPT/HCPCS: 82947; 96365; G0277; J0696 ==

== ENCOUNTER 2021-01-26 00:15 | Day surgery (SDC) | payer OTHER | END 2021-01-26 08:07 | disposition home or self-care (01) | LOC: ATC 00:15 | DX: E11.69 Type 2 diabetes mellitus with other specified complication (principal); M86.9 Osteomyelitis, unspecified; E11.51 Type 2 diabetes mellitus with diabetic peripheral angiopathy without gangrene; E11.42 Type 2 diabetes mellitus with diabetic polyneuropathy; I10 Essential (primary) hypertension; E78.5 Hyperlipidemia, unspecified; M19.042 Primary osteoarthritis, left hand; M19.041 Primary osteoarthritis, right hand; Z89.429 Acquired absence of other toe(s), unspecified side; Z96.651 Presence of right artificial knee joint; Z79.82 Long term (current) use of aspirin; Z79.84 Long term (current) use of oral hypoglycemic drugs | CPT/HCPCS: 96365; J0696 ==

== ENCOUNTER 2021-01-26 00:55 | Day surgery (SDC) | payer OTHER | END 2021-01-26 23:03 | disposition home or self-care (01) | LOC: HBO 00:55 | DX: M86.8X7 Other osteomyelitis, ankle and foot (principal); E11.621 Type 2 diabetes mellitus with foot ulcer; L97.509 Non-pressure chronic ulcer of other part of unspecified foot with unspecified severity; E11.59 Type 2 diabetes mellitus with other circulatory complications; Z59.0 Homelessness | CPT/HCPCS: 82947; 96365; G0277; J0696 ==

== ENCOUNTER 2021-01-27 00:48 | Day surgery (SDC) | payer OTHER | END 2021-01-27 22:45 | disposition home or self-care (01) | LOC: HBO 00:48 | DX: M86.8X7 Other osteomyelitis, ankle and foot (principal); E11.621 Type 2 diabetes mellitus with foot ulcer; E11.59 Type 2 diabetes mellitus with other circulatory complications; Z59.0 Homelessness | CPT/HCPCS: 82947; 96365; G0277; J0696 ==

== ENCOUNTER 2021-01-28 07:30 | Day surgery (SDC) | payer OTHER | END 2021-01-28 07:52 | disposition home or self-care (01) | LOC: ATC 07:30 | DX: E11.69 Type 2 diabetes mellitus with other specified complication (principal); M86.9 Osteomyelitis, unspecified; E11.42 Type 2 diabetes mellitus with diabetic polyneuropathy; I10 Essential (primary) hypertension; E78.5 Hyperlipidemia, unspecified; E11.51 Type 2 diabetes mellitus with diabetic peripheral angiopathy without gangrene; Z89.429 Acquired absence of other toe(s), unspecified side; Z79.82 Long term (current) use of aspirin | CPT/HCPCS: 96365; J0696 ==

== ENCOUNTER 2021-01-29 07:20 | Day surgery (SDC) | payer OTHER | END 2021-01-29 07:51 | disposition home or self-care (01) | LOC: ATC 07:20 | DX: E11.69 Type 2 diabetes mellitus with other specified complication (principal); M86.9 Osteomyelitis, unspecified; E11.51 Type 2 diabetes mellitus with diabetic peripheral angiopathy without gangrene; E11.42 Type 2 diabetes mellitus with diabetic polyneuropathy; I10 Essential (primary) hypertension; E78.5 Hyperlipidemia, unspecified; M19.042 Primary osteoarthritis, left hand; M19.041 Primary osteoarthritis, right hand; Z89.429 Acquired absence of other toe(s), unspecified side; Z96.651 Presence of right artificial knee joint; Z79.82 Long term (current) use of aspirin; Z79.84 Long term (current) use of oral hypoglycemic drugs | CPT/HCPCS: 96365; J0696 ==

== ENCOUNTER 2021-01-30 08:07 | Day surgery (SDC) | payer OTHER | END 2021-01-30 23:02 | disposition home or self-care (01) | LOC: HBO 08:07 | DX: E11.69 Type 2 diabetes mellitus with other specified complication (principal); M86.8X7 Other osteomyelitis, ankle and foot; E11.621 Type 2 diabetes mellitus with foot ulcer; E11.59 Type 2 diabetes mellitus with other circulatory complications; Z59.0 Homelessness | CPT/HCPCS: 82947; 96365; A9270; G0277; J0696 ==

== ENCOUNTER 2021-01-31 02:53 | Day surgery (SDC) | payer OTHER | END 2021-01-31 23:16 | disposition home or self-care (01) | LOC: HBO 02:53 | DX: M86.8X7 Other osteomyelitis, ankle and foot (principal); E11.621 Type 2 diabetes mellitus with foot ulcer; L97.509 Non-pressure chronic ulcer of other part of unspecified foot with unspecified severity; E11.59 Type 2 diabetes mellitus with other circulatory complications; Z59.0 Homelessness | CPT/HCPCS: 82947; G0277 ==

== ENCOUNTER 2021-02-01 03:19 | Day surgery (SDC) | payer OTHER | END 2021-02-01 23:35 | disposition home or self-care (01) | LOC: HBO 03:19 | DX: M86.8X7 Other osteomyelitis, ankle and foot (principal); E11.621 Type 2 diabetes mellitus with foot ulcer; L97.509 Non-pressure chronic ulcer of other part of unspecified foot with unspecified severity; E11.59 Type 2 diabetes mellitus with other circulatory complications; Z59.0 Homelessness | CPT/HCPCS: 82947; G0277 ==

== ENCOUNTER 2021-02-02 03:52 | Day surgery (SDC) | payer OTHER | END 2021-02-02 23:46 | disposition home or self-care (01) | LOC: HBO 03:52 | DX: M86.8X7 Other osteomyelitis, ankle and foot (principal); E11.621 Type 2 diabetes mellitus with foot ulcer; L97.509 Non-pressure chronic ulcer of other part of unspecified foot with unspecified severity; E11.59 Type 2 diabetes mellitus with other circulatory complications; Z59.0 Homelessness | CPT/HCPCS: 82947; G0277 ==

== ENCOUNTER 2021-02-07 04:45 | Day surgery (SDC) | payer OTHER | END 2021-02-07 23:44 | disposition home or self-care (01) | LOC: HBO 04:45 | DX: E11.69 Type 2 diabetes mellitus with other specified complication (principal); M86.672 Other chronic osteomyelitis, left ankle and foot; E11.621 Type 2 diabetes mellitus with foot ulcer; E11.59 Type 2 diabetes mellitus with other circulatory complications; Z59.0 Homelessness; Z79.84 Long term (current) use of oral hypoglycemic drugs | CPT/HCPCS: 82947; G0277 ==

== ENCOUNTER 2021-02-08 04:32 | Day surgery (SDC) | payer OTHER | END 2021-02-08 22:58 | disposition home or self-care (01) | LOC: HBO 04:32 | DX: E11.69 Type 2 diabetes mellitus with other specified complication (principal); M86.8X7 Other osteomyelitis, ankle and foot; E11.621 Type 2 diabetes mellitus with foot ulcer; E11.59 Type 2 diabetes mellitus with other circulatory complications; Z95.0 Presence of cardiac pacemaker | CPT/HCPCS: 82947; G0277 ==

== ENCOUNTER 2021-02-09 05:27 | Day surgery (SDC) | payer OTHER | END 2021-02-09 22:46 | disposition home or self-care (01) | LOC: HBO 05:27 | DX: E11.69 Type 2 diabetes mellitus with other specified complication (principal); M86.672 Other chronic osteomyelitis, left ankle and foot; E11.621 Type 2 diabetes mellitus with foot ulcer; E11.59 Type 2 diabetes mellitus with other circulatory complications; Z59.0 Homelessness | CPT/HCPCS: 82947; G0277 ==

== ENCOUNTER 2021-02-10 04:15 | Day surgery (SDC) | payer OTHER | END 2021-02-10 23:10 | disposition home or self-care (01) | LOC: HBO 04:15 | DX: E11.69 Type 2 diabetes mellitus with other specified complication (principal); M86.672 Other chronic osteomyelitis, left ankle and foot; E11.621 Type 2 diabetes mellitus with foot ulcer; L97.529 Non-pressure chronic ulcer of other part of left foot with unspecified severity; E11.59 Type 2 diabetes mellitus with other circulatory complications; Z59.0 Homelessness | CPT/HCPCS: 82947; G0277 ==

== ENCOUNTER 2021-02-13 00:32 | Day surgery (SDC) | payer OTHER | END 2021-02-13 23:01 | disposition home or self-care (01) | LOC: HBO 00:32 | DX: E11.69 Type 2 diabetes mellitus with other specified complication (principal); M86.672 Other chronic osteomyelitis, left ankle and foot; E11.59 Type 2 diabetes mellitus with other circulatory complications; E11.621 Type 2 diabetes mellitus with foot ulcer; L97.509 Non-pressure chronic ulcer of other part of unspecified foot with unspecified severity; Z59.0 Homelessness; Z79.84 Long term (current) use of oral hypoglycemic drugs | CPT/HCPCS: 82947; A9270; G0277 ==

== ENCOUNTER 2021-02-14 02:09 | Day surgery (SDC) | payer OTHER | END 2021-02-14 22:53 | disposition home or self-care (01) | LOC: HBO 02:09 | DX: M86.8X7 Other osteomyelitis, ankle and foot (principal); E11.621 Type 2 diabetes mellitus with foot ulcer; E11.59 Type 2 diabetes mellitus with other circulatory complications; Z59.0 Homelessness | CPT/HCPCS: 82947; G0277 ==

== ENCOUNTER 2021-02-15 02:17 | Day surgery (SDC) | payer OTHER | END 2021-02-15 23:52 | disposition home or self-care (01) | LOC: HBO 02:17 | DX: M86.8X7 Other osteomyelitis, ankle and foot (principal); E11.621 Type 2 diabetes mellitus with foot ulcer; E11.59 Type 2 diabetes mellitus with other circulatory complications; Z59.0 Homelessness | CPT/HCPCS: 82947; 93922; G0277 ==

== ENCOUNTER 2021-02-16 03:44 | Day surgery (SDC) | payer OTHER | END 2021-02-16 22:50 | disposition home or self-care (01) | LOC: HBO | DX: E11.621 Type 2 diabetes mellitus with foot ulcer (principal); L97.509 Non-pressure chronic ulcer of other part of unspecified foot with unspecified severity; E11.59 Type 2 diabetes mellitus with other circulatory complications; Z59.0 Homelessness | CPT/HCPCS: 82947; G0277 ==

== ENCOUNTER 2021-02-17 04:06 | Day surgery (SDC) | payer OTHER | END 2021-02-18 00:35 | disposition home or self-care (01) | LOC: HBO | DX: M86.8X7 Other osteomyelitis, ankle and foot (principal); E11.621 Type 2 diabetes mellitus with foot ulcer; E11.59 Type 2 diabetes mellitus with other circulatory complications; Z59.0 Homelessness | CPT/HCPCS: 82947; G0277 ==

== ENCOUNTER 2021-02-20 00:20 | Day surgery (SDC) | payer OTHER | END 2021-02-20 23:19 | disposition home or self-care (01) | LOC: HBO | DX: E11.69 Type 2 diabetes mellitus with other specified complication (principal); M86.8X7 Other osteomyelitis, ankle and foot; E11.621 Type 2 diabetes mellitus with foot ulcer; E11.59 Type 2 diabetes mellitus with other circulatory complications; Z59.0 Homelessness | CPT/HCPCS: 82947; A9270; G0277 ==

== ENCOUNTER 2021-02-21 00:16 | Day surgery (SDC) | payer OTHER | END 2021-02-22 22:53 | disposition home or self-care (01) | LOC: HBO 00:16 | DX: E11.69 Type 2 diabetes mellitus with other specified complication (principal); M86.672 Other chronic osteomyelitis, left ankle and foot; E11.59 Type 2 diabetes mellitus with other circulatory complications; E11.621 Type 2 diabetes mellitus with foot ulcer; L97.509 Non-pressure chronic ulcer of other part of unspecified foot with unspecified severity; Z59.0 Homelessness; Z79.84 Long term (current) use of oral hypoglycemic drugs | CPT/HCPCS: 82947; G0277 ==

== ENCOUNTER 2021-02-22 04:31 | Day surgery (SDC) | payer OTHER | END 2021-02-22 22:53 | disposition home or self-care (01) | LOC: HBO 04:31 | DX: E11.621 Type 2 diabetes mellitus with foot ulcer (principal); L97.509 Non-pressure chronic ulcer of other part of unspecified foot with unspecified severity; M86.8X7 Other osteomyelitis, ankle and foot; E11.59 Type 2 diabetes mellitus with other circulatory complications; Z59.0 Homelessness | CPT/HCPCS: 82947; G0277 ==

== ENCOUNTER 2021-02-23 04:02 | Day surgery (SDC) | payer OTHER | END 2021-02-23 23:21 | disposition home or self-care (01) | LOC: HBO 04:02 | DX: E11.621 Type 2 diabetes mellitus with foot ulcer (principal); M86.8X7 Other osteomyelitis, ankle and foot; E11.59 Type 2 diabetes mellitus with other circulatory complications; Z59.0 Homelessness | CPT/HCPCS: 82947; G0277 ==

== ENCOUNTER 2021-02-24 04:37 | Day surgery (SDC) | payer OTHER | END 2021-02-24 23:53 | disposition home or self-care (01) | LOC: HBO 04:37 | DX: E11.621 Type 2 diabetes mellitus with foot ulcer (principal); L97.529 Non-pressure chronic ulcer of other part of left foot with unspecified severity; M86.8X7 Other osteomyelitis, ankle and foot; E11.59 Type 2 diabetes mellitus with other circulatory complications; Z59.0 Homelessness | CPT/HCPCS: 82947; G0277 ==

== ENCOUNTER 2021-02-27 00:20 | Day surgery (SDC) | payer OTHER | END 2021-02-28 02:23 | disposition home or self-care (01) | LOC: HBO 00:20 | DX: E11.69 Type 2 diabetes mellitus with other specified complication (principal); M86.8X7 Other osteomyelitis, ankle and foot; E11.59 Type 2 diabetes mellitus with other circulatory complications; Z59.0 Homelessness | CPT/HCPCS: 82947; 87071; 87075; 87205; A9270; G0277 ==

== ENCOUNTER 2021-02-28 04:13 | Day surgery (SDC) | payer OTHER | END 2021-02-28 23:12 | disposition home or self-care (01) | LOC: HBO 04:13 | DX: E11.69 Type 2 diabetes mellitus with other specified complication (principal); M86.672 Other chronic osteomyelitis, left ankle and foot; E11.621 Type 2 diabetes mellitus with foot ulcer; L97.524 Non-pressure chronic ulcer of other part of left foot with necrosis of bone; E11.59 Type 2 diabetes mellitus with other circulatory complications; Z59.0 Homelessness | CPT/HCPCS: 82947; G0277 ==

== ENCOUNTER 2021-03-01 04:24 | Day surgery (SDC) | payer OTHER | END 2021-03-01 23:05 | disposition home or self-care (01) | LOC: HBO 04:24 | DX: E11.621 Type 2 diabetes mellitus with foot ulcer (principal); L97.524 Non-pressure chronic ulcer of other part of left foot with necrosis of bone; M86.8X7 Other osteomyelitis, ankle and foot; E11.59 Type 2 diabetes mellitus with other circulatory complications; Z59.0 Homelessness | CPT/HCPCS: 82947; G0277 ==

== ENCOUNTER 2021-03-02 00:23 | Day surgery (SDC) | payer OTHER | END 2021-03-02 22:52 | disposition home or self-care (01) | LOC: HBO 00:23 | DX: E11.69 Type 2 diabetes mellitus with other specified complication (principal); M86.672 Other chronic osteomyelitis, left ankle and foot; E11.621 Type 2 diabetes mellitus with foot ulcer; L97.524 Non-pressure chronic ulcer of other part of left foot with necrosis of bone; E11.59 Type 2 diabetes mellitus with other circulatory complications; Z59.0 Homelessness | CPT/HCPCS: 82947; G0277 ==

== ENCOUNTER 2021-03-03 01:46 | Day surgery (SDC) | payer OTHER | END 2021-03-03 12:00 | disposition home or self-care (01) | LOC: HBO 01:46 | DX: E11.69 Type 2 diabetes mellitus with other specified complication (principal); M86.672 Other chronic osteomyelitis, left ankle and foot; E11.621 Type 2 diabetes mellitus with foot ulcer; L97.524 Non-pressure chronic ulcer of other part of left foot with necrosis of bone; E11.59 Type 2 diabetes mellitus with other circulatory complications; Z59.0 Homelessness | CPT/HCPCS: 82947; G0277 ==

== ENCOUNTER 2021-03-06 00:28 | Day surgery (SDC) | payer OTHER | END 2021-03-06 23:38 | disposition home or self-care (01) | LOC: HBO 00:28 | DX: E11.69 Type 2 diabetes mellitus with other specified complication (principal); M86.672 Other chronic osteomyelitis, left ankle and foot; E11.621 Type 2 diabetes mellitus with foot ulcer; L97.524 Non-pressure chronic ulcer of other part of left foot with necrosis of bone; E11.59 Type 2 diabetes mellitus with other circulatory complications; Z59.0 Homelessness | CPT/HCPCS: 82947; A9270; G0277 ==

== ENCOUNTER 2021-03-07 03:29 | Day surgery (SDC) | payer OTHER | END 2021-03-07 23:52 | disposition home or self-care (01) | LOC: HBO 03:29 | DX: E11.621 Type 2 diabetes mellitus with foot ulcer (principal); L97.524 Non-pressure chronic ulcer of other part of left foot with necrosis of bone; M86.8X7 Other osteomyelitis, ankle and foot; E11.59 Type 2 diabetes mellitus with other circulatory complications; Z59.0 Homelessness | CPT/HCPCS: 73720; 82947; A9579; G0277 ==

== ENCOUNTER 2021-03-08 02:50 | Day surgery (SDC) | payer OTHER | END 2021-03-08 23:37 | disposition home or self-care (01) | LOC: HBO 02:50 | DX: E11.621 Type 2 diabetes mellitus with foot ulcer (principal); L97.524 Non-pressure chronic ulcer of other part of left foot with necrosis of bone; M86.8X7 Other osteomyelitis, ankle and foot; E11.59 Type 2 diabetes mellitus with other circulatory complications; Z59.0 Homelessness | CPT/HCPCS: 82947; G0277 ==

== ENCOUNTER 2021-03-09 02:23 | Day surgery (SDC) | payer OTHER | END 2021-03-09 23:17 | disposition home or self-care (01) | LOC: HBO 02:23 | DX: E11.69 Type 2 diabetes mellitus with other specified complication (principal); M86.672 Other chronic osteomyelitis, left ankle and foot; E11.621 Type 2 diabetes mellitus with foot ulcer; L97.524 Non-pressure chronic ulcer of other part of left foot with necrosis of bone; E11.59 Type 2 diabetes mellitus with other circulatory complications; I10 Essential (primary) hypertension; E11.51 Type 2 diabetes mellitus with diabetic peripheral angiopathy without gangrene; M06.9 Rheumatoid arthritis, unspecified; E11.40 Type 2 diabetes mellitus with diabetic neuropathy, unspecified; Z96.659 Presence of unspecified artificial knee joint; Z79.84 Long term (current) use of oral hypoglycemic drugs; Z59.0 Homelessness | CPT/HCPCS: 82947; G0277 ==

== ENCOUNTER 2021-03-14 04:16 | Day surgery (SDC) | payer OTHER | END 2021-03-14 22:56 | disposition home or self-care (01) | LOC: HBO 04:16 | DX: E11.69 Type 2 diabetes mellitus with other specified complication (principal); M86.672 Other chronic osteomyelitis, left ankle and foot; E11.621 Type 2 diabetes mellitus with foot ulcer; L97.524 Non-pressure chronic ulcer of other part of left foot with necrosis of bone; E11.59 Type 2 diabetes mellitus with other circulatory complications; Z59.0 Homelessness | CPT/HCPCS: 82947; G0277 ==

== ENCOUNTER 2021-03-15 00:57 | Day surgery (SDC) | payer OTHER | END 2021-03-15 23:49 | disposition home or self-care (01) | LOC: HBO 00:57 | DX: E11.621 Type 2 diabetes mellitus with foot ulcer (principal); L97.524 Non-pressure chronic ulcer of other part of left foot with necrosis of bone; M86.8X7 Other osteomyelitis, ankle and foot; E11.59 Type 2 diabetes mellitus with other circulatory complications; Z59.0 Homelessness | CPT/HCPCS: 82947; A9270; G0277 ==

== ENCOUNTER 2021-03-16 01:24 | Day surgery (SDC) | payer OTHER | END 2021-03-16 23:50 | disposition home or self-care (01) | LOC: HBO 01:24 | DX: E11.621 Type 2 diabetes mellitus with foot ulcer (principal); L97.524 Non-pressure chronic ulcer of other part of left foot with necrosis of bone; M86.8X7 Other osteomyelitis, ankle and foot; E11.59 Type 2 diabetes mellitus with other circulatory complications; Z59.0 Homelessness | CPT/HCPCS: 82947; G0277 ==

== ENCOUNTER 2021-03-17 00:31 | Day surgery (SDC) | payer OTHER | END 2021-03-17 23:00 | disposition home or self-care (01) | LOC: HBO 00:31 | DX: E11.621 Type 2 diabetes mellitus with foot ulcer (principal); L97.524 Non-pressure chronic ulcer of other part of left foot with necrosis of bone; M86.8X7 Other osteomyelitis, ankle and foot; E11.59 Type 2 diabetes mellitus with other circulatory complications; Z59.0 Homelessness | CPT/HCPCS: 82947; G0277 ==

== ENCOUNTER 2021-03-20 03:26 | Day surgery (SDC) | payer OTHER | END 2021-03-20 23:00 | disposition home or self-care (01) | LOC: HBO 03:26 | DX: E11.621 Type 2 diabetes mellitus with foot ulcer (principal); L97.524 Non-pressure chronic ulcer of other part of left foot with necrosis of bone; M86.8X7 Other osteomyelitis, ankle and foot; E11.59 Type 2 diabetes mellitus with other circulatory complications; Z59.0 Homelessness | CPT/HCPCS: 82947; G0277 ==

== ENCOUNTER 2021-03-20 03:32 | Day surgery (SDC) | payer OTHER | END 2021-03-20 23:01 | disposition home or self-care (01) | LOC: WOUND 03:32 | DX: E11.621 Type 2 diabetes mellitus with foot ulcer (principal); L97.522 Non-pressure chronic ulcer of other part of left foot with fat layer exposed; M86.8X7 Other osteomyelitis, ankle and foot; E11.59 Type 2 diabetes mellitus with other circulatory complications; Z59.0 Homelessness; I10 Essential (primary) hypertension; E11.42 Type 2 diabetes mellitus with diabetic polyneuropathy ==

== ENCOUNTER 2021-03-21 00:42 | Day surgery (SDC) | payer OTHER | END 2021-03-21 23:29 | disposition home or self-care (01) | LOC: HBO 00:42 | DX: E11.621 Type 2 diabetes mellitus with foot ulcer (principal); L97.524 Non-pressure chronic ulcer of other part of left foot with necrosis of bone; M86.8X7 Other osteomyelitis, ankle and foot; E11.59 Type 2 diabetes mellitus with other circulatory complications; Z59.0 Homelessness | CPT/HCPCS: 82947; G0277 ==

== ENCOUNTER 2021-03-23 00:28 | Day surgery (SDC) | payer OTHER | END 2021-03-23 23:05 | disposition home or self-care (01) | LOC: HBO 00:28 | DX: E11.621 Type 2 diabetes mellitus with foot ulcer (principal); L97.524 Non-pressure chronic ulcer of other part of left foot with necrosis of bone; M86.8X7 Other osteomyelitis, ankle and foot; E11.59 Type 2 diabetes mellitus with other circulatory complications; Z59.0 Homelessness | CPT/HCPCS: 82947; G0277 ==

== ENCOUNTER 2021-03-24 01:13 | Day surgery (SDC) | payer OTHER | END 2021-03-24 22:48 | disposition home or self-care (01) | LOC: HBO 01:13 | DX: E11.69 Type 2 diabetes mellitus with other specified complication (principal); M86.8X7 Other osteomyelitis, ankle and foot; E11.621 Type 2 diabetes mellitus with foot ulcer; L97.524 Non-pressure chronic ulcer of other part of left foot with necrosis of bone; E11.59 Type 2 diabetes mellitus with other circulatory complications; Z59.0 Homelessness | CPT/HCPCS: 82947; G0277 ==

== ENCOUNTER 2021-03-27 00:56 | Day surgery (SDC) | payer OTHER | END 2021-03-27 23:01 | disposition home or self-care (01) | LOC: HBO 00:56 | DX: E11.69 Type 2 diabetes mellitus with other specified complication (principal); M86.672 Other chronic osteomyelitis, left ankle and foot; E11.621 Type 2 diabetes mellitus with foot ulcer; L97.524 Non-pressure chronic ulcer of other part of left foot with necrosis of bone; E11.59 Type 2 diabetes mellitus with other circulatory complications; Z59.0 Homelessness | CPT/HCPCS: 82947; G0277 ==

== ENCOUNTER 2021-03-27 01:22 | Day surgery (SDC) | payer OTHER | END 2021-03-27 23:01 | disposition home or self-care (01) | LOC: WOUND 01:22 | DX: E11.621 Type 2 diabetes mellitus with foot ulcer (principal); L97.522 Non-pressure chronic ulcer of other part of left foot with fat layer exposed; M86.8X7 Other osteomyelitis, ankle and foot; E11.59 Type 2 diabetes mellitus with other circulatory complications; Z59.0 Homelessness; I10 Essential (primary) hypertension; E11.42 Type 2 diabetes mellitus with diabetic polyneuropathy | CPT/HCPCS: A9270; G0463 ==

== ENCOUNTER 2021-04-03 02:42 | Day surgery (SDC) | payer OTHER | END 2021-04-03 23:47 | disposition home or self-care (01) | LOC: WOUND 02:42 | DX: E11.621 Type 2 diabetes mellitus with foot ulcer (principal); L97.522 Non-pressure chronic ulcer of other part of left foot with fat layer exposed; M86.8X7 Other osteomyelitis, ankle and foot; E11.59 Type 2 diabetes mellitus with other circulatory complications; Z59.0 Homelessness | CPT/HCPCS: A9270; G0463 ==

== ENCOUNTER 2021-04-10 01:49 | Day surgery (SDC) | payer OTHER | END 2021-04-10 23:04 | disposition home or self-care (01) | LOC: WOUND 01:49 | DX: E11.621 Type 2 diabetes mellitus with foot ulcer (principal); L97.522 Non-pressure chronic ulcer of other part of left foot with fat layer exposed; L97.422 Non-pressure chronic ulcer of left heel and midfoot with fat layer exposed; S81.802A Unspecified open wound, left lower leg, initial encounter; S91.302A Unspecified open wound, left foot, initial encounter; X58.XXXA Exposure to other specified factors, initial encounter; M86.8X7 Other osteomyelitis, ankle and foot; E11.59 Type 2 diabetes mellitus with other circulatory complications; Z59.0 Homelessness | CPT/HCPCS: A9270 ==

== ENCOUNTER 2021-04-17 00:11 | Day surgery (SDC) | payer OTHER | END 2021-04-17 22:57 | disposition home or self-care (01) | LOC: WOUND 00:11 | DX: E11.621 Type 2 diabetes mellitus with foot ulcer (principal); L97.524 Non-pressure chronic ulcer of other part of left foot with necrosis of bone; L97.522 Non-pressure chronic ulcer of other part of left foot with fat layer exposed; E11.622 Type 2 diabetes mellitus with other skin ulcer; L97.821 Non-pressure chronic ulcer of other part of left lower leg limited to breakdown of skin; E11.59 Type 2 diabetes mellitus with other circulatory complications; E11.69 Type 2 diabetes mellitus with other specified complication; M86.8X7 Other osteomyelitis, ankle and foot; Z59.0 Homelessness | CPT/HCPCS: A9270; G0463 ==

== ENCOUNTER 2021-04-24 02:43 | Day surgery (SDC) | payer OTHER | END 2021-04-24 12:00 | disposition home or self-care (01) | LOC: WOUND 02:43 | DX: E11.621 Type 2 diabetes mellitus with foot ulcer (principal); L97.522 Non-pressure chronic ulcer of other part of left foot with fat layer exposed; L89.891 Pressure ulcer of other site, stage 1; L97.429 Non-pressure chronic ulcer of left heel and midfoot with unspecified severity; E11.69 Type 2 diabetes mellitus with other specified complication; M86.672 Other chronic osteomyelitis, left ankle and foot; S81.802D Unspecified open wound, left lower leg, subsequent encounter; S91.302D Unspecified open wound, left foot, subsequent encounter; E11.51 Type 2 diabetes mellitus with diabetic peripheral angiopathy without gangrene; E11.42 Type 2 diabetes mellitus with diabetic polyneuropathy; I10 Essential (primary) hypertension; M19.90 Unspecified osteoarthritis, unspecified site; X58.XXXD Exposure to other specified factors, subsequent encounter; Z59.0 Homelessness; Z87.828 Personal history of other (healed) physical injury and trauma | CPT/HCPCS: A9270; G0463 ==

== ENCOUNTER 2021-05-01 02:19 | Day surgery (SDC) | payer OTHER | END 2021-05-01 23:50 | disposition home or self-care (01) | LOC: WOUND 02:19 | DX: E11.621 Type 2 diabetes mellitus with foot ulcer (principal); L97.522 Non-pressure chronic ulcer of other part of left foot with fat layer exposed; L97.429 Non-pressure chronic ulcer of left heel and midfoot with unspecified severity; E11.51 Type 2 diabetes mellitus with diabetic peripheral angiopathy without gangrene; I10 Essential (primary) hypertension; E11.42 Type 2 diabetes mellitus with diabetic polyneuropathy; E11.69 Type 2 diabetes mellitus with other specified complication; M86.8X7 Other osteomyelitis, ankle and foot; E11.59 Type 2 diabetes mellitus with other circulatory complications; S81.802A Unspecified open wound, left lower leg, initial encounter; X58.XXXA Exposure to other specified factors, initial encounter; Z59.0 Homelessness | CPT/HCPCS: G0463 ==

== ENCOUNTER 2021-05-08 07:34 | Day surgery (SDC) | payer OTHER ==
[~2021-05-08] VITALS: Ht 172.7 cm; Wt 92.2 kg
[2021-05-08] MEDS ORDERED: Lantus100 UNIT/1 SC (08:01)
--- NOTE | 2021-05-08 08:19 | NUR ---
History, Chart, Medications and Allergies reviewed before start of procedure. Patient confirms NPO status and agrees with scheduled surgery. Patient States Post-Procedure ride home has been arranged with a family member.
--- NOTE | 2021-05-08 08:20 | NUR ---
Lungs clear T/O to Auscultation.
--- NOTE | 2021-05-08 11:00 | NUR ---
PT GIVEN SANDWICH TO EAT AND IS TOLERATING FOOD AND FLUID WELL.
--- NOTE | 2021-05-08 12:57 | NUR ---
PT IS TO GO TO [facility] AND GET RX FOR NORCO WHICH WAS CALLED INTO PHARMACY BY DR. BURCH. PT IS ALSO TO GO TO DR. BURCH'S OFFICE AND OBTAIN CRUTCHES. PLAN IS FOR PT TO GO TO [facility] ON [place] WHERE HE WILL BE STAYING FOR 2 MONTHS. PT REPORTS HAVING PAIN IN R FOOT AFTER GOING TO THE BATHROOM. PT INSTRUCTED PRIOR TO GOING TO THE BATHROOM VIA WC THAT HE WAS TO NOT WEIGHT BARE AT ALL. PT STATE HE DID PUT A LITTLE WEIGHT ON HIS HEEL. PT GIVEN PO PAIN MEDICATIONS PRIOR TO DISCHARGE WELL INSTRUCTED TO USE ICE, ELEVATION AND PAIN MEDICATIONS.
== END 2021-05-08 23:20 | disposition home or self-care (01) ==
LOC: ORSCMMR 07:34
PROVIDERS: Podiatrist Foot & Ankle Surgery
PROC: 0Y6N0ZB Detachment at Left Foot, Partial 2nd Ray, Open Approach (ICD-10-PCS; principal; 2021-05-08 09:00)
PROC: 0Y6N0ZC Detachment at Left Foot, Partial 3rd Ray, Open Approach (ICD-10-PCS; principal; 2021-05-08 09:00)
PROC: 0Y6N0ZF Detachment at Left Foot, Partial 5th Ray, Open Approach (ICD-10-PCS; principal; 2021-05-08 09:00)
PROC: 0Y6N0Z9 Detachment at Left Foot, Partial 1st Ray, Open Approach (ICD-10-PCS; principal; 2021-05-08 09:00)
PROC: 0Y6N0ZD Detachment at Left Foot, Partial 4th Ray, Open Approach (ICD-10-PCS; principal; 2021-05-08 09:00)
DX: M86.172 Other acute osteomyelitis, left ankle and foot (principal); I10 Essential (primary) hypertension; E11.42 Type 2 diabetes mellitus with diabetic polyneuropathy; N18.9 Chronic kidney disease, unspecified; Z79.4 Long term (current) use of insulin; Z79.82 Long term (current) use of aspirin; Z79.899 Other long term (current) drug therapy
CPT/HCPCS: 82947; 88305; 88311; A9270; J0690; J1100; J2001; J2250; J2370; J2405; J2704; J3010; J7120

== ENCOUNTER 2021-05-17 02:15 | Day surgery (SDC) | payer OTHER ==
[~2021-05-17 02:15] MED LIST changes: +Lantus100 UNIT/1 SC
== END 2021-05-17 23:50 | disposition home or self-care (01) ==
LOC: WOUND 02:15
DX: E11.621 Type 2 diabetes mellitus with foot ulcer (principal); L97.528 Non-pressure chronic ulcer of other part of left foot with other specified severity; L89.891 Pressure ulcer of other site, stage 1; E11.42 Type 2 diabetes mellitus with diabetic polyneuropathy; I10 Essential (primary) hypertension; E11.51 Type 2 diabetes mellitus with diabetic peripheral angiopathy without gangrene; E11.59 Type 2 diabetes mellitus with other circulatory complications; Z89.432 Acquired absence of left foot
CPT/HCPCS: A9270; G0463

== ENCOUNTER 2021-05-22 00:23 | Day surgery (SDC) | payer OTHER | END 2021-05-22 23:42 | disposition home or self-care (01) | LOC: WOUND 00:23 | DX: E11.621 Type 2 diabetes mellitus with foot ulcer (principal); L97.529 Non-pressure chronic ulcer of other part of left foot with unspecified severity; E11.51 Type 2 diabetes mellitus with diabetic peripheral angiopathy without gangrene; E11.42 Type 2 diabetes mellitus with diabetic polyneuropathy; I10 Essential (primary) hypertension; E11.59 Type 2 diabetes mellitus with other circulatory complications; Z89.432 Acquired absence of left foot | CPT/HCPCS: G0463 ==

== ENCOUNTER 2021-05-29 02:30 | Day surgery (SDC) | payer OTHER | END 2021-05-29 23:02 | disposition home or self-care (01) | LOC: WOUND 02:30 | DX: S91.302D Unspecified open wound, left foot, subsequent encounter (principal); X58.XXXD Exposure to other specified factors, subsequent encounter; E11.59 Type 2 diabetes mellitus with other circulatory complications; E11.621 Type 2 diabetes mellitus with foot ulcer; I10 Essential (primary) hypertension; Z89.432 Acquired absence of left foot | CPT/HCPCS: A9270 ==

== ENCOUNTER 2021-06-05 03:57 | Day surgery (SDC) | payer OTHER | END 2021-06-05 23:38 | disposition home or self-care (01) | LOC: WOUND 03:57 | DX: E11.621 Type 2 diabetes mellitus with foot ulcer (principal); L97.522 Non-pressure chronic ulcer of other part of left foot with fat layer exposed; S91.302D Unspecified open wound, left foot, subsequent encounter; E11.51 Type 2 diabetes mellitus with diabetic peripheral angiopathy without gangrene; E11.42 Type 2 diabetes mellitus with diabetic polyneuropathy; I10 Essential (primary) hypertension; M19.90 Unspecified osteoarthritis, unspecified site; Z89.432 Acquired absence of left foot | CPT/HCPCS: A9270 ==

== ENCOUNTER 2021-06-19 02:51 | Day surgery (SDC) | payer OTHER | END 2021-06-19 22:55 | disposition home or self-care (01) | LOC: WOUND | PROC: 3E013TZ Introduction of Destructive Agent into Subcutaneous Tissue, Percutaneous Approach (ICD-10-PCS; principal; 2021-06-19) | DX: S91.302A Unspecified open wound, left foot, initial encounter (principal); I10 Essential (primary) hypertension; E11.42 Type 2 diabetes mellitus with diabetic polyneuropathy; E11.51 Type 2 diabetes mellitus with diabetic peripheral angiopathy without gangrene; E11.59 Type 2 diabetes mellitus with other circulatory complications; E11.621 Type 2 diabetes mellitus with foot ulcer; M19.90 Unspecified osteoarthritis, unspecified site; X58.XXXA Exposure to other specified factors, initial encounter | CPT/HCPCS: A9270 ==

== ENCOUNTER 2021-06-26 03:47 | Day surgery (SDC) | payer OTHER | END 2021-06-26 12:00 | disposition home or self-care (01) | LOC: WOUND 03:47 | DX: S91.302D Unspecified open wound, left foot, subsequent encounter (principal); X58.XXXD Exposure to other specified factors, subsequent encounter; E11.59 Type 2 diabetes mellitus with other circulatory complications; E11.621 Type 2 diabetes mellitus with foot ulcer; Z89.432 Acquired absence of left foot; E11.42 Type 2 diabetes mellitus with diabetic polyneuropathy; I10 Essential (primary) hypertension; E11.51 Type 2 diabetes mellitus with diabetic peripheral angiopathy without gangrene | CPT/HCPCS: A9270 ==

== ENCOUNTER 2021-07-03 05:34 | Day surgery (SDC) | payer OTHER | END 2021-07-03 22:53 | disposition home or self-care (01) | LOC: WOUND 05:34 | DX: S91.302D Unspecified open wound, left foot, subsequent encounter (principal); E11.59 Type 2 diabetes mellitus with other circulatory complications; E11.621 Type 2 diabetes mellitus with foot ulcer; Z89.432 Acquired absence of left foot; I10 Essential (primary) hypertension; E11.51 Type 2 diabetes mellitus with diabetic peripheral angiopathy without gangrene; E11.42 Type 2 diabetes mellitus with diabetic polyneuropathy | CPT/HCPCS: G0463 ==

== ENCOUNTER 2021-07-10 05:48 | Day surgery (SDC) | payer OTHER | END 2021-07-10 23:22 | disposition home or self-care (01) | LOC: WOUND 05:48 | DX: S91.302D Unspecified open wound, left foot, subsequent encounter (principal); X58.XXXD Exposure to other specified factors, subsequent encounter; E11.621 Type 2 diabetes mellitus with foot ulcer; E11.59 Type 2 diabetes mellitus with other circulatory complications; Z89.432 Acquired absence of left foot; E11.42 Type 2 diabetes mellitus with diabetic polyneuropathy; I10 Essential (primary) hypertension | CPT/HCPCS: A9270 ==

== ENCOUNTER 2021-07-17 04:55 | Day surgery (SDC) | payer OTHER | END 2021-07-17 23:00 | disposition home or self-care (01) | LOC: WOUND 04:55 | DX: S91.302D Unspecified open wound, left foot, subsequent encounter (principal); X58.XXXD Exposure to other specified factors, subsequent encounter; E11.621 Type 2 diabetes mellitus with foot ulcer; E11.59 Type 2 diabetes mellitus with other circulatory complications; Z89.432 Acquired absence of left foot | CPT/HCPCS: G0463 ==

== ENCOUNTER 2021-08-07 03:00 | Day surgery (SDC) | payer OTHER | END 2021-08-07 22:55 | disposition home or self-care (01) | LOC: WOUND 03:00 | DX: S91.302D Unspecified open wound, left foot, subsequent encounter (principal); X58.XXXD Exposure to other specified factors, subsequent encounter; E11.621 Type 2 diabetes mellitus with foot ulcer; L97.529 Non-pressure chronic ulcer of other part of left foot with unspecified severity; E11.59 Type 2 diabetes mellitus with other circulatory complications; Z89.432 Acquired absence of left foot; E11.42 Type 2 diabetes mellitus with diabetic polyneuropathy; I10 Essential (primary) hypertension | CPT/HCPCS: G0463 ==